=== PATIENT | female | born 1995 | race African-American/Black ===

== ENCOUNTER 2018-04-25 18:54 | Emergency (ER) | payer MEDICAID ==
[2018-04-25] MEDS ORDERED: HYDROCODONE/ACETAMINOPHEN 5-325 MG (6 TAB/ER DISP) PO PRN (19:56)
[2018-04-25] MEDS ORDERED: IBUPROFEN 800 MG TABLET PO ONE (19:56)
--- NOTE | 2018-04-25 19:59 | ER Document Report ---
HPI - HPI Patient complains to provider of: Neck pain Time Seen by Provider: 04/25/18 19:50 Onset: Yesterday Onset/Duration: Gradual Quality of pain: Achy Pain Level: 4 Context: Patient states she woke up yesterday with right lateral neck pain. Patient denies any injury or fever. Patient without any headache pain. Pain increases with lateral rotation of her head. Associated Symptoms: Other - Neck pain. denies: Fever, Headache, Nausea, Vomiting Exacerbated by: Movement Relieved by: Remaining still Similar symptoms previously: No Recently seen / treated by doctor: No - ROS ROS below otherwise negative: Yes Systems Reviewed and Negative: Yes All other systems reviewed and negative - CONSTITUTIONAL Constitutional: DENIES: Fever - EENT EENT: DENIES: Sore Throat - NEURO Neurology: DENIES: Headache, Weakness - GASTROINTESTINAL Gastrointestinal: DENIES: Nausea, Patient vomiting - MUSCULOSKELETAL Musculoskeletal: REPORTS: Neck Pain. 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 IN LAST 30 DAYS: No - HEENT HEENT: Atraumatic, Normal ENT Exam, Normocephalic - NECK Neck: Supple, Other - Right trapezius muscle tenderness with spasm at insertion point of right occipital area. negative: Lymphadenopathy-Left, Lymphadenopathy- Right - RESPIRATORY Respiratory: No Respiratory Distress - CARDIOVASCULAR Pulses: Normal: Radial - BACK Back: Abnormal Inspection - Trapezius muscle tenderness with spasm - MUSCULOSKELETAL/EXTREMETIES Musculoskeletal/Extremeties: MAEW, FROM - NEURO Level of Consciousness: Awake, Alert, Appropriate Motor/Sensory: No Motor Deficit Notes: No focal neurologic deficit - DERM Integumentary: Warm, Dry, No Rash Course - Re-evaluation Re-evalutation: 04/25/18 19:57 Patient with muscle spasm to neck, no concern for meningitis, fracture, or epidural abscess. Patient afebrile denies any history of trauma. Pain is reproduced with lateral rotation of the head. - Vital Signs Vital signs: Temp Pulse Resp BP Pulse Ox 98.9 F 83 12 136/85 H 99 04/25/18 18:58 04/25/18 18:58 04/25/18 18:58 04/25/18 18:58 04/25/18 18:58 Discharge - Discharge Clinical Impression: Trapezius muscle spasm Condition: Stable Disposition: HOME, SELF-CARE Instructions: Muscle Relaxers ([facility]), Muscle Strain ([facility]), Warm Packs ([facility]) Additional Instructions: Return immediately for any new or worsening symptoms Followup with your primary care provider, call tomorrow to make a followup appointment Prescriptions: Metaxalone [Skelaxin 800 mg Tablet] 800 mg PO ASDIR PRN #15 tablet PRN Reason: Naproxen [Naprosyn 250 Nmg Tablet] 1 tab PO BID #14 tablet Forms: Return to Work Referrals: [facility] [Provider Group] - Follow up as needed
[2018-04-25 20:11] VITALS: BP 130/96
== END 2018-04-25 20:13 | disposition home or self-care (01) ==
LOC: ER 18:54
DX: M62.830 Muscle spasm of back (principal)
CPT/HCPCS: 99283; J3490